=== PATIENT | female | born 1975 | race Two or more races ===

== ENCOUNTER 2018-07-25 11:03 | Emergency (ER) | payer OTHER ==
[~2018-07-25] VITALS: Ht 152.4 cm; Wt 63.5 kg
[2018-07-25 11:03] VITALS: BP 128/80
[2018-07-25] MEDS ORDERED: IBUPROFEN 600 MG TABLET PO ONE ×2 (11:40→12:00)
[2018-07-25] MEDS ORDERED: ONDANSETRON 4 MG TAB.RAPDIS ONE (11:40)
[2018-07-25] MEDS ORDERED: HYDROCODONE/APAP 10/325MG 1 EA TABLET ONE (11:40)
[2018-07-25] MEDS ORDERED: HYDROCODONE/APAP 10/325MG 1 EA TABLET PO ONE (12:00)
[2018-07-25] MEDS ORDERED: ONDANSETRON 4 MG TAB.RAPDIS SL ONE (12:00)
== END 2018-07-25 13:52 | disposition home or self-care (01) ==
LOC: ER 11:05
DX: S89.81XA Other specified injuries of right lower leg, initial encounter (principal); X50.9XXA Other and unspecified overexertion or strenuous movements or postures, initial encounter; Y93.89 Activity, other specified; Y92.89 Other specified places as the place of occurrence of the external cause; Y99.8 Other external cause status
CPT/HCPCS: 29505; 73562; 99284; Q0162